=== PATIENT | male | born 1970 | race Caucasian/White ===

== ENCOUNTER 2016-12-31 14:57 | Inpatient (IN) | payer OTHER ==
[2016-12-31 18:25] VITALS: BMI 22.1
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
[2016-12-31] MEDS ORDERED: P-EPHED 60MG/TRIPROLIDI 2.5MG TABLET PO PRN (20:34)
[2016-12-31] MEDS ORDERED: guaiFENesin/D-METHORPHAN HB 10 ML UNIT-DOSE CUPS PO PRN (20:34)
[2016-12-31] MEDS ORDERED: LOPERAMIDE HCL 2 MG CAPSULE PO PRN (20:34)
[2016-12-31] MEDS ORDERED: MAGNESIUM HYDROX 2400MG/30ML ORAL SUSPENSION 30 ML CUP PO PRN (20:34)
[2016-12-31] MEDS ORDERED: MAG HYDROX/AL HYDROX/SIMETH 30 ML UNIT-DOSE CUP PO PRN (20:34)
[2016-12-31] MEDS ORDERED: ACETAMINOPHEN 325 MG TABLET (FP) PO PRN (20:34)
[2016-12-31] MEDS ORDERED: chlordiazePOXIDE HCL 25 MG CAPSULE PO PRN (20:34)
[2016-12-31] MEDS ORDERED: diphenhydrAMINE HCL 50 MG CAPSULE PO PRN (20:34)
[2016-12-31] MEDS ORDERED: IBUPROFEN 400 MG TABLET (FP) PO PRN (20:34)
[2016-12-31] MEDS ORDERED: hydrOXYzine PAMOATE 50 MG CAPSULE (FP) PO PRN (20:34)
[2016-12-31] MEDS ORDERED: chlordiazePOXIDE HCL 25 MG CAPSULE PO ONE (20:34)
[2016-12-31] MEDS ORDERED: MENTHOL/PHENOL 1 EACH UD MM PRN (20:34)
[2016-12-31] MEDS ORDERED: MAGNESIUM CITRATE 300 ML BOTTLE PO PRN (20:34)
[2016-12-31] MEDS ORDERED: ALBUTEROL SO4 6.7 GM HFA INHALER IH PRN (20:37)
[2016-12-31] MEDS: THIAMINE HCL 100 MG TABLET (FP) PO SCH (21:35)
[2016-12-31] MEDS: NICOTINE POLACRILEX 2 MG GUM BC PRN (22:06)
[2016-12-31] MEDS: chlordiazePOXIDE HCL 25 MG CAPSULE PO SCH (22:06)
[2016-12-31 23:34] LABS: URINE APPEARANCE CLEAR; URINE BILIRUBIN NEGATIVE (NEGATIVE); URINE BLOOD NEGATIVE (NEGATIVE); URINE COLOR LT. YELLOW; URINE GLUCOSE (UA) NEGATIVE (NEGATIVE); URINE KETONE NEGATIVE (NEGATIVE); URINE LEUK ESTERASE NEGATIVE (NEGATIVE); URINE NITRITE NEGATIVE (NEGATIVE); URINE PROTEIN NEGATIVE (NEGATIVE); URINE UROBILINOGEN 0.2 mg/dL (0.2-1.0)
[2017-01-01] MEDS: NICOTINE POLACRILEX 2 MG GUM BC PRN ×4 (05:55→20:57)
[2017-01-01] MEDS: chlordiazePOXIDE HCL 25 MG CAPSULE PO SCH ×4 (05:55→22:01)
[2017-01-01 09:57] LABS: MCH 32.8 pg (25.7-33.7); MCHC 33.5 g/dl (32.0-35.9); MEAN CELL VOLUME 97.8 fl (80-96); MEAN PLT VOLUME 7.6 fl (7.5-11.1); PLATELET COUNT 338 K/MM3 (134-434); RDW 13.4 % (11.9-15.9); WHITE BLOOD COUNT 8.8 K/mm3 (4.0-10.0)
[2017-01-01] MEDS: PRENATAL VITAMINS W/ FOLIC ACID TABLET (FP) PO SCH (10:11)
[2017-01-01] MEDS: DIVALPROEX SODIUM 500 MG TABLET E.C. PO SCH ×2 (10:11→22:01)
[2017-01-01] MEDS: PANTOPRAZOLE 40 MG TABLET (FP) PO SCH (10:11)
--- NOTE | 2017-01-01 10:20 | PN ---
BHS CIWA - CIWA Score Nausea/Vomitin Muscle Tremors: 4-Moderate,w/Arms Extend Anxiety: 4-Mod. Anxious/Guarded Agitation: 4-Moderately Restless Paroxysmal Sweats: 3 Orientation: 0-Oriented Tacttile Disturbances: 1-Very Mild Itch/Numbness Auditory Disturbances: 0-None Visual Disturbances: 0-None Headache: 1-Very Mild CIWA-Ar Total Score: 20 BHS Progress Note (SOAP) Subjective: nausea, sweats, interrupted sleep, anxiety, tremors Objective: 01/01/17 10:19 Vital Signs - 24 hr 12/31/16 12/31/16 01/01/17 18:23 22:18 00:25 Temperature 150 F H 97.7 F Pulse Rate 79 73 Respiratory 18 16 18 Rate Blood Pressure 121/68 114/78 01/01/17 01/01/17 06:38 09:59 Temperature 96.6 F L 96.9 F L Pulse Rate 59 L 67 Respiratory 18 18 Rate Blood Pressure 91/69 98/61 Laboratory Tests 12/31/16 01/01/17 20:56 07:00 WBC 8.8 RBC 3.82 L Hgb 12.5 D Hct 37.4 MCV 97.8 H MCH 32.8 MCHC 33.5 RDW 13.4 Plt Count 338 D MPV 7.6 Urine Color Lt. yellow Urine Appearance Clear Urine pH 5.0 Urine Protein Negative Urine Glucose (UA) Negative Urine Ketones Negative Urine Blood Negative Urine Nitrite Negative Urine Bilirubin Negative Urine Urobilinogen 0.2 Ur Leukocyte Esterase Negative labs still pending Assessment: 01/01/17 10:19 withdrawal sx Plan: cont detox, check labs, fluids, encoruage ambualtion
[2017-01-01 10:40] LABS: ALBUMIN 3.2 g/dl (3.4-5.0); ALK PHOS 95 U/L (45-117); ANION GAP 8 (8-16); BILIRUBIN,TOTAL 0.7 mg/dL (0.2-1.0); CALCIUM 8.5 mg/dL (8.5-10.1); CO2 27 mmol/L (21-32); GLUCOSE,RANDOM 93 mg/dL (74-106); SGOT/AST 18 U/L (15-37); SGPT/ALT 53 U/L (12-78)
[2017-01-01] MEDS: ASPIRIN COATED 81 MG TABLET.EC PO SCH (11:30)
--- NOTE | 2017-01-01 12:23 | CONSULT ---
[facility] Psychiatric Consult - Data Date of interview: 01/01/17 Admission source: [facility] Identifying data: This is 46 years old male with history bof psychiatric hospitalization, PTSD history intoxicated with: Alcohol, Cannabis, Cocaine and Nicotine Substance Abuse History: - Smoking Cessation. Smoking history: Current every day smoker. Have you smoked in the past 12 months: Yes. Aproximately how many cigarettes per day: 20. Hx Chewing Tobacco Use: No. Initiated information on smoking cessation: Yes. 'Breaking Loose' booklet given: 12/31/16. - Substance & Tx. History. Hx Alcohol Use: Yes. Hx Substance Use: Yes. Substance Use Type : Alcohol, Cocaine, Marijuana. Hx Substance Use Treatment: Yes ([facility] 06/04/11 to 06/04/11). - Substances Abused. Alcohol. Route: Oral. Frequency: Daily. Amount used: vodka 1 pint, beer 3 of 6packs. Age of first use: 14. Date of Last Use: 12/31/16. Cocaine. Route: Smoking. Frequency: Daily. Amount used: 7 grams. Age of first use: 14. Date of Last Use: 12/30/16. Marijuana/Hashish. Route: Smoking. Frequency: Daily. Amount used: 3 bags. Age of first use: 15. Date of Last Use: 12/30/16 Medical History: GERD, Weight loss history Psychiatric History: Patient reprots history of PTSD, anxiety and depression, rep[orts taking prior to admission: Depakote 500mg po biod. Patient reports most recent unclear psychiatrioc admsision on [address] [facility]. Patient refusing psychiatric medications during detox protocol Physical/Sexual Abuse/Trauma History: Denies Additional Comment: Depakote 500mg po bid. Patient refusing psychiatric medications during detox protocol Mental Status Exam - Mental Status Exam Alert and Oriented to: Person Cognitive Function: Fair Patient Appearance: Unkempt Mood: Angry Affect: Flat Patient Behavior: Sedated Speech Pattern: Appropriate Voice Loudness: Mildly Soft/Quiet Thought Process: Goal Oriented Thought Disorder: Being Controlled Hallucinations: Denies Suicidal Ideation: Denies Homicidal Ideation: Denies Insight/Judgement: Fair Sleep: Difficulty falling asleep Appetite: Weight loss Muscle strength/Tone: Normal Gait/Station: Normal Additional Comments: Depakote 500mg po bid. Patient refusing psychiatric medications during detox protocol Psychiatric Findings - Problem List ([place] 1, 2,3) (1) Alcohol dependence Current Visit: Yes Status: Acute (2) Alcohol dependence with uncomplicated withdrawal Current Visit: Yes Status: Acute (3) Cannabis dependence Current Visit: Yes Status: Acute (4) Cocaine dependence Current Visit: Yes Status: Acute (5) Nicotine dependence Current Visit: Yes Status: Acute (6) PTSD (post-traumatic stress disorder) Current Visit: Yes Status: Acute (7) Drug-induced mood disorder Current Visit: Yes Status: Acute - Initial Treatment Plan Initial Treatment Plan: Depakote 500mg po bid. Patient refusing psychiatric medications during detox protocol
--- NOTE | 2017-01-01 15:00 | EKG ---
Test Reason : Blood Pressure : / mmHG Vent. Rate : 068 BPM Atrial Rate : 068 BPM P-R Int : 132 ms QRS Dur : 098 ms QT Int : 380 ms P-R-T Axes : 043 025 035 degrees QTc Int : 404 ms NORMAL SINUS RHYTHM NORMAL ECG NO PREVIOUS ECGS AVAILABLE Confirmed by KAITLYN HITCHCOCK MD ([id number]) on 01/01/2017 3:00:03 PM Referred By: Jose A Zamora Confirmed By:KAITLYN HITCHCOCK MD
[2017-01-01] MEDS: THIAMINE HCL 100 MG TABLET (FP) PO SCH (22:01)
[2017-01-02] MEDS: chlordiazePOXIDE HCL 25 MG CAPSULE PO SCH ×2 (06:39→10:06)
[2017-01-02] MEDS: NICOTINE POLACRILEX 2 MG GUM BC PRN ×2 (09:24→12:09)
[2017-01-02] MEDS: DIVALPROEX SODIUM 500 MG TABLET E.C. PO SCH (10:06)
[2017-01-02] MEDS: PRENATAL VITAMINS W/ FOLIC ACID TABLET (FP) PO SCH (10:06)
[2017-01-02] MEDS: PANTOPRAZOLE 40 MG TABLET (FP) PO SCH (10:06)
[2017-01-02] MEDS: ASPIRIN COATED 81 MG TABLET.EC PO SCH (10:06)
--- NOTE | 2017-01-02 10:08 | PN ---
[facility] CIWA - CIWA Score Nausea/Vomitin-No Nausea/No Vomiting Muscle Tremors: 3 Anxiety: 4-Mod. Anxious/Guarded Agitation: 4-Moderately Restless Paroxysmal Sweats: 3 Orientation: 0-Oriented Tacttile Disturbances: 0-None Auditory Disturbances: 0-None Visual Disturbances: 0-None Headache: 0-None Present CIWA-Ar Total Score: 14 BHS Progress Note (SOAP) Subjective: Anxiety,tremors,sweating,interrupted sleep,restless. Objective: 01/02/17 10:05 Vital Signs - 8 hr 01/02/17 01/02/17 01/02/17 03:36 06:27 09:25 Temperature 96.2 F L 96.7 F L Pulse Rate 62 75 Respiratory 18 18 18 Rate Blood Pressure 99/64 104/61 01/02/17 09:43 Temperature 96.7 F L Pulse Rate 75 Respiratory 18 Rate Blood Pressure 104/61 Laboratory Last Values WBC 8.8 K/mm3 (4.0-10.0) 01/01/17 07:00 RBC 3.82 M/mm3 (4.00-5.60) L 01/01/17 07:00 Hgb 12.5 GM/dL (11.7-16.9) D 01/01/17 07:00 Hct 37.4 % (35.4-49) 01/01/17 07:00 MCV 97.8 fl (80-96) H 01/01/17 07:00 MCH 32.8 pg (25.7-33.7) 01/01/17 07:00 MCHC 33.5 g/dl (32.0-35.9) 01/01/17 07:00 RDW 13.4 % (11.9-15.9) 01/01/17 07:00 Plt Count 338 K/MM3 (134-434) D 01/01/17 07:00 MPV 7.6 fl (7.5-11.1) 01/01/17 07:00 Sodium 142 mmol/L (136-145) 01/01/17 07:00 Potassium 3.9 mmol/L (3.5-5.1) 01/01/17 07:00 Chloride 107 mmol/L (98-107) 01/01/17 07:00 Carbon Dioxide 27 mmol/L (21-32) 01/01/17 07:00 Anion Gap 8 (8-16) 01/01/17 07:00 BUN 19 mg/dL (7-18) H D 01/01/17 07:00 Creatinine 1.0 mg/dL (0.7-1.3) 01/01/17 07:00 Creat Clearance w eGFR > 60 (>60) 01/01/17 07:00 Random Glucose 93 mg/dL (74-106) 01/01/17 07:00 Calcium 8.5 mg/dL (8.5-10.1) 01/01/17 07:00 Total Bilirubin 0.7 mg/dL (0.2-1.0) D 01/01/17 07:00 AST 18 U/L (15-37) D 01/01/17 07:00 ALT 53 U/L (12-78) D 01/01/17 07:00 Alkaline Phosphatase 95 U/L (45-117) D 01/01/17 07:00 Total Protein 6.0 g/dl (6.4-8.2) L 01/01/17 07:00 Albumin 3.2 g/dl (3.4-5.0) L 01/01/17 07:00 Urine Color Lt. yellow 12/31/16 20:56 Urine Appearance Clear 12/31/16 20:56 Urine pH 5.0 (5.0-8.0) 12/31/16 20:56 Ur Specific [place] 1.025 (1.005-1.025) 12/31/16 20:56 Urine Protein Negative (NEGATIVE) 12/31/16 20:56 Urine Glucose (UA) Negative (NEGATIVE) 12/31/16 20:56 Urine Ketones Negative (NEGATIVE) 12/31/16 20:56 Urine Blood Negative (NEGATIVE) 12/31/16 20:56 Urine Nitrite Negative (NEGATIVE) 12/31/16 20:56 Urine Bilirubin Negative (NEGATIVE) 12/31/16 20:56 Urine Urobilinogen 0.2 mg/dL (0.2-1.0) 12/31/16 20:56 Ur Leukocyte Esterase Negative (NEGATIVE) 12/31/16 20:56 RPR Titer Nonreactive (NONREACTIVE) 01/01/17 07:00 labs noted Assessment: 01/02/17 10:08 Withdrawal sx. Plan: Continue detox
[2017-01-02 13:46] VITALS: BP 103/65; PULSE 71; TEMP 97
[2017-01-02] MEDS ORDERED: chlordiazePOXIDE 5 MG CAPSULE PO SCH (23:00)
[2017-01-03] MEDS ORDERED: chlordiazePOXIDE HCL 10 MG CAPSULE PO SCH (23:00)
== END 2017-01-02 13:15 | disposition left against medical advice (07) | DRG 894 ==
LOC: YASAS 14:57 → Y3N 20:32
PROVIDERS: ADMIT Internal Medicine; ATTEND Internal Medicine
PROC: HZ2ZZZZ Detoxification Services for Substance Abuse Treatment (ICD-10-PCS; principal; 2016-12-31)
DX: F10.230 Alcohol dependence with withdrawal, uncomplicated (principal); F14.20 Cocaine dependence, uncomplicated; F12.20 Cannabis dependence, uncomplicated; F17.210 Nicotine dependence, cigarettes, uncomplicated; F19.24 Other psychoactive substance dependence with psychoactive substance-induced mood disorder; F43.10 Post-traumatic stress disorder, unspecified; J45.909 Unspecified asthma, uncomplicated; K21.9 Gastro-esophageal reflux disease without esophagitis; G47.00 Insomnia, unspecified; Z87.898 Personal history of other specified conditions; Z91.013 Allergy to seafood; Z88.8 Allergy status to other drugs, medicaments and biological substances; Z86.69 Personal history of other diseases of the nervous system and sense organs; Z91.5 Personal history of self-harm
CPT/HCPCS: 36415; 80053; 80164; 81003; 85027; 86593; 93005; 93010

== ENCOUNTER 2017-05-04 15:12 | Inpatient (IN) | payer OTHER ==
[2017-05-04 15:24] VITALS: BMI 22.1
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
[2017-05-04] MEDS ORDERED: MAGNESIUM CITRATE 300 ML BOTTLE PO PRN (17:32)
[2017-05-04] MEDS ORDERED: MAG HYDROX/AL HYDROX/SIMETH 30 ML UNIT-DOSE CUP PO PRN (17:32)
[2017-05-04] MEDS ORDERED: MENTHOL/PHENOL 1 EACH UD MM PRN (17:32)
[2017-05-04] MEDS ORDERED: LOPERAMIDE HCL 2 MG CAPSULE PO PRN (17:32)
[2017-05-04] MEDS ORDERED: P-EPHED 60MG/TRIPROLIDI 2.5MG TABLET PO PRN (17:32)
[2017-05-04] MEDS ORDERED: guaiFENesin/D-METHORPHAN HB 10 ML UNIT-DOSE CUPS PO PRN (17:32)
[2017-05-04] MEDS ORDERED: MAGNESIUM HYDROX 2400MG/30ML ORAL SUSPENSION 30 ML CUP PO PRN (17:32)
[2017-05-04] MEDS ORDERED: NICOTINE 14 MG/24 HOURS TOPICAL PATCH TD PRN (17:34)
[2017-05-04] MEDS ORDERED: ALBUTEROL SO4 18 GM HFA INHALER IH PRN (17:34)
[2017-05-04] MEDS: chlordiazePOXIDE HCL 25 MG CAPSULE PO PRN (19:05)
[2017-05-04] MEDS: NICOTINE POLACRILEX 2 MG GUM BC PRN (19:23)
[2017-05-04] MEDS: ACETAMINOPHEN 325 MG TABLET (FP) PO PRN (22:10)
[2017-05-04] MEDS: chlordiazePOXIDE HCL 25 MG CAPSULE PO SCH (22:10)
[2017-05-04] MEDS: THIAMINE HCL 100 MG TABLET (FP) PO SCH (22:11)
[2017-05-04] MEDS: RANITIDINE HCL 150 MG TABLET (FP) PO SCH (22:11)
[2017-05-04 23:24] LABS: URINE APPEARANCE CLEAR; URINE BILIRUBIN NEGATIVE (NEGATIVE); URINE BLOOD NEGATIVE (NEGATIVE); URINE COLOR YELLOW; URINE GLUCOSE (UA) NEGATIVE (NEGATIVE); URINE KETONE NEGATIVE (NEGATIVE); URINE LEUK ESTERASE NEGATIVE (NEGATIVE); URINE NITRITE NEGATIVE (NEGATIVE); URINE PROTEIN NEGATIVE (NEGATIVE); URINE UROBILINOGEN NEGATIVE mg/dL (0.2-1.0)
[2017-05-05] MEDS: chlordiazePOXIDE HCL 25 MG CAPSULE PO SCH ×4 (05:18→22:07)
[2017-05-05] MEDS: NICOTINE POLACRILEX 2 MG GUM BC PRN ×3 (05:19→22:25)
[2017-05-05 10:03] LABS: MCH 32.2 pg (25.7-33.7); MCHC 32.4 g/dl (32.0-35.9); MEAN CELL VOLUME 99.4 fl (80-96); MEAN PLT VOLUME 7.6 fl (7.5-11.1); PLATELET COUNT 270 K/MM3 (134-434); RDW 13.1 % (11.9-15.9)
[2017-05-05 10:13] LABS: SGOT/AST 26 U/L (15-37); SGPT/ALT 31 U/L (12-78)
[2017-05-05] MEDS: RANITIDINE HCL 150 MG TABLET (FP) PO SCH ×2 (10:19→22:07)
[2017-05-05] MEDS: PRENATAL VITAMINS W/ FOLIC ACID TABLET (FP) PO SCH (10:19)
[2017-05-05 10:22] LABS: URINE LEUK ESTERASE Negative (NEGATIVE)
[2017-05-05 10:26] LABS: ALBUMIN 3.3 g/dl (3.4-5.0); ALK PHOS 96 U/L (45-117); ANION GAP 6 (8-16); BILIRUBIN,TOTAL 0.2 mg/dL (0.2-1.0); CALCIUM 8.3 mg/dL (8.5-10.1); CO2 27 mmol/L (21-32); CREATININE 0.9 mg/dL (0.7-1.3); GLUCOSE,RANDOM 94 mg/dL (74-106); TOT PROT 5.8 g/dl (6.4-8.2)
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
[2017-05-05] MEDS ORDERED: IBUPROFEN 400 MG TABLET (FP) PO PRN (11:56)
--- NOTE | 2017-05-05 12:04 | PN ---
[facility] CIWA - CIWA Score Nausea/Vomitin-No Nausea/No Vomiting Muscle Tremors: 3 Anxiety: 4-Mod. Anxious/Guarded Agitation: 3 Paroxysmal Sweats: 2 Orientation: 0-Oriented Tacttile Disturbances: 2-Mild Itch/Numbness/Burn Auditory Disturbances: 0-None Visual Disturbances: 3-Moderate Sensitivity Headache: 0-None Present CIWA-Ar Total Score: 17 S Progress Note (SOAP) Subjective: Body Aches, Fatigue, Anxious. Objective: PT. A & O X 3, OBSERVED AMBULATING ON UNIT. NO ACUTE DISTRESS. 05/05/17 12:02 Vital Signs Temperature 96.1 F L 05/05/17 09:07 Pulse Rate 57 L 05/05/17 09:07 Respiratory Rate 18 05/05/17 09:07 Blood Pressure 106/65 05/05/17 09:07 O2 Sat by Pulse Oximetry (%) Laboratory Tests 05/04/17 05/05/17 05/05/17 23:10 07:00 07:00 WBC 7.0 RBC 3.97 L Hgb 12.8 Hct 39.4 MCV 99.4 H MCH 32.2 MCHC 32.4 RDW 13.1 Plt Count 270 D MPV 7.6 Sodium 142 Potassium 4.4 Chloride 109 H Carbon Dioxide 27 Anion Gap 6 L BUN 20 H Creatinine 0.9 Creat Clearance w eGFR > 60 Random Glucose 94 Calcium 8.3 L Total Bilirubin 0.2 D AST 26 D ALT 31 D Alkaline Phosphatase 96 Total Protein 5.8 L Albumin 3.3 L Urine Color Yellow Urine Appearance Clear Urine pH 5.0 Ur Specific [place] 1.024 Urine Protein Negative Urine Glucose (UA) Negative Urine Ketones Negative Urine Blood Negative Urine Nitrite Negative Urine Bilirubin Negative Urine Urobilinogen Negative Ur Leukocyte Esterase Negative Valproic Acid 05/05/17 07:00 WBC RBC Hgb Hct MCV MCH MCHC RDW Plt Count MPV Sodium Potassium Chloride Carbon Dioxide Anion Gap BUN Creatinine Creat Clearance w eGFR Random Glucose Calcium Total Bilirubin AST ALT Alkaline Phosphatase Total Protein Albumin Urine Color Urine Appearance Urine pH Ur Specific [place] Urine Protein Urine Glucose (UA) Urine Ketones Urine Blood Urine Nitrite Urine Bilirubin Urine Urobilinogen Ur Leukocyte Esterase Valproic Acid < 3.000 L LABS NOTED. RPR, HIV AB RESULTS PENDING. 05/05/17 12:03 Assessment: 05/05/17 12:02 WITHDRAWAL SYMPTOMS. Plan: CONTINUE DETOX. INCREASE DAILY PO FLUID INTAKE.
[2017-05-05 13:19] LABS: HIV 1 & 2 AB NEGATIVE; HIV 1 AGp24 NEGATIVE
[2017-05-05] MEDS: THIAMINE HCL 100 MG TABLET (FP) PO SCH (22:07)
[2017-05-06] MEDS: chlordiazePOXIDE HCL 25 MG CAPSULE PO PRN (03:47)
[2017-05-06] MEDS: BACLOFEN 10 MG TABLET (FP) PO PRN (03:50)
[2017-05-06] MEDS: chlordiazePOXIDE HCL 25 MG CAPSULE PO SCH ×3 (05:18→17:14)
[2017-05-06] MEDS: NICOTINE POLACRILEX 2 MG GUM BC PRN ×3 (05:20→17:12)
[2017-05-06] MEDS ORDERED: LIDOCAINE 5% TOPICAL PATCH TP ONE (09:49)
--- NOTE | 2017-05-06 10:09 | EKG ---
Test Reason : Blood Pressure : / mmHG Vent. Rate : 063 BPM Atrial Rate : 063 BPM P-R Int : 132 ms QRS Dur : 098 ms QT Int : 382 ms P-R-T Axes : 056 042 044 degrees QTc Int : 390 ms NORMAL SINUS RHYTHM NORMAL ECG WHEN COMPARED WITH ECG OF 31-DEC-2016 20:25, NO SIGNIFICANT CHANGE WAS FOUND Confirmed by MARSHA PAGE MD ([id number]) on 05/06/2017 10:08:56 AM Referred By: Confirmed By:MARSHA PAGE MD
[2017-05-06] MEDS: PSYLLIUM 5.85 GM PACKET PO SCH ×2 (10:23→22:21)
[2017-05-06] MEDS: PRENATAL VITAMINS W/ FOLIC ACID TABLET (FP) PO SCH (10:23)
[2017-05-06] MEDS: RANITIDINE HCL 150 MG TABLET (FP) PO SCH ×2 (10:23→22:21)
--- NOTE | 2017-05-06 12:28 | PN ---
[facility] CIWA - CIWA Score Nausea/Vomitin-No Nausea/No Vomiting Muscle Tremors: 2 Anxiety: 4-Mod. Anxious/Guarded Agitation: 2 Paroxysmal Sweats: No Perspiration Orientation: 0-Oriented Tacttile Disturbances: 2-Mild Itch/Numbness/Burn Auditory Disturbances: 2-Mild Harshness/Frighten Visual Disturbances: 3-Moderate Sensitivity Headache: 0-None Present CIWA-Ar Total Score: 15 [facility] Progress Note (SOAP) Subjective: Diarrhea, Anxious, Body Aches, Tremors. Objective: PT. A & O X 3, OBSERVED AMBULATING ON UNIT. NO ACUTE DISTRESS. 05/06/17 12:29 Vital Signs Temperature 98.1 F 05/06/17 09:18 Pulse Rate 62 05/06/17 09:18 Respiratory Rate 18 05/06/17 09:18 Blood Pressure 106/62 05/06/17 09:18 O2 Sat by Pulse Oximetry (%) Laboratory Tests 05/04/17 05/04/17 05/05/17 07:00 23:10 07:00 WBC 7.0 RBC 3.97 L Hgb 12.8 Hct 39.4 MCV 99.4 H MCH 32.2 MCHC 32.4 RDW 13.1 Plt Count 270 D MPV 7.6 Sodium Potassium Chloride Carbon Dioxide Anion Gap BUN Creatinine Creat Clearance w eGFR Random Glucose Calcium Total Bilirubin AST ALT Alkaline Phosphatase Total Protein Albumin Urine Color Yellow Urine Appearance Clear Urine pH 5.0 Ur Specific [place] 1.024 Urine Protein Negative Urine Glucose (UA) Negative Urine Ketones Negative Urine Blood Negative Urine Nitrite Negative Urine Bilirubin Negative Urine Urobilinogen Negative Ur Leukocyte Esterase Negative Valproic Acid RPR Titer HIV 1&2 Antibody Screen Negative HIV P24 Antigen Negative 05/05/17 05/05/17 05/05/17 07:00 07:00 07:00 WBC RBC Hgb Hct MCV MCH MCHC RDW Plt Count MPV Sodium 142 Potassium 4.4 Chloride 109 H Carbon Dioxide 27 Anion Gap 6 L BUN 20 H Creatinine 0.9 Creat Clearance w eGFR > 60 Random Glucose 94 Calcium 8.3 L Total Bilirubin 0.2 D AST 26 D ALT 31 D Alkaline Phosphatase 96 Total Protein 5.8 L Albumin 3.3 L Urine Color Urine Appearance Urine pH Ur Specific [place] Urine Protein Urine Glucose (UA) Urine Ketones Urine Blood Urine Nitrite Urine Bilirubin Urine Urobilinogen Ur Leukocyte Esterase Valproic Acid < 3.000 L RPR Titer Nonreactive HIV 1&2 Antibody Screen HIV P24 Antigen LABS NOTED. Assessment: 05/06/17 12:29 WITHDRAWAL SYMPTOMS. DEHYDRATION. 05/06/17 12:30 Plan: CONTINUE DETOX. INCREASE DAILY PO FLUID INTAKE. LIDODERM PATCH FOR UPPER BACK PAIN.
[2017-05-06] MEDS ORDERED: LIDOCAINE PATCH REMOVAL MC SCH (22:00)
[2017-05-06] MEDS: chlordiazePOXIDE 5 MG CAPSULE PO SCH (22:21)
[2017-05-06] MEDS: THIAMINE HCL 100 MG TABLET (FP) PO SCH (22:21)
[2017-05-06] MEDS ORDERED: hydrOXYzine PAMOATE 50 MG CAPSULE (FP) PO PRN (23:35)
[2017-05-06] MEDS ORDERED: diphenhydrAMINE HCL 25 MG CAPSULE (FP) PO ONE (23:37)
[2017-05-07] MEDS: BACLOFEN 10 MG TABLET (FP) PO PRN (00:38)
[2017-05-07] MEDS: chlordiazePOXIDE HCL 25 MG CAPSULE PO PRN (00:38)
[2017-05-07] MEDS: chlordiazePOXIDE 5 MG CAPSULE PO SCH ×2 (05:56→10:42)
[2017-05-07] MEDS ORDERED: LIDOCAINE 5% TOPICAL PATCH TP ONE (10:33)
[2017-05-07] MEDS: PRENATAL VITAMINS W/ FOLIC ACID TABLET (FP) PO SCH (10:41)
[2017-05-07] MEDS: PSYLLIUM 5.85 GM PACKET PO SCH (10:41)
[2017-05-07] MEDS: RANITIDINE HCL 150 MG TABLET (FP) PO SCH (10:41)
[2017-05-07] MEDS: ACETAMINOPHEN 325 MG TABLET (FP) PO PRN (10:44)
[2017-05-07 14:13] VITALS: BP 112/71; PULSE 96; TEMP 97.2
--- NOTE | 2017-05-07 14:55 | PN ---
[facility] Progress Note (SOAP) Subjective: Body Aches, Anxious, Interrupted Sleep. Objective: PT. A & O X 3, OBSERVED AMBULATING ON UNIT. NO ACUTE DISTRESS. 05/07/17 14:54 Vital Signs Temperature 97.2 F L 05/07/17 14:13 Pulse Rate 96 H 05/07/17 14:13 Respiratory Rate 18 05/07/17 14:13 Blood Pressure 112/71 05/07/17 14:13 O2 Sat by Pulse Oximetry (%) Laboratory Tests 05/04/17 05/04/17 05/05/17 07:00 23:10 07:00 WBC 7.0 RBC 3.97 L Hgb 12.8 Hct 39.4 MCV 99.4 H MCH 32.2 MCHC 32.4 RDW 13.1 Plt Count 270 D MPV 7.6 Sodium Potassium Chloride Carbon Dioxide Anion Gap BUN Creatinine Creat Clearance w eGFR Random Glucose Calcium Total Bilirubin AST ALT Alkaline Phosphatase Total Protein Albumin Urine Color Yellow Urine Appearance Clear Urine pH 5.0 Ur Specific [place] 1.024 Urine Protein Negative Urine Glucose (UA) Negative Urine Ketones Negative Urine Blood Negative Urine Nitrite Negative Urine Bilirubin Negative Urine Urobilinogen Negative Ur Leukocyte Esterase Negative Valproic Acid RPR Titer HIV 1&2 Antibody Screen Negative HIV P24 Antigen Negative 05/05/17 05/05/17 05/05/17 07:00 07:00 07:00 WBC RBC Hgb Hct MCV MCH MCHC RDW Plt Count MPV Sodium 142 Potassium 4.4 Chloride 109 H Carbon Dioxide 27 Anion Gap 6 L BUN 20 H Creatinine 0.9 Creat Clearance w eGFR > 60 Random Glucose 94 Calcium 8.3 L Total Bilirubin 0.2 D AST 26 D ALT 31 D Alkaline Phosphatase 96 Total Protein 5.8 L Albumin 3.3 L Urine Color Urine Appearance Urine pH Ur Specific [place] Urine Protein Urine Glucose (UA) Urine Ketones Urine Blood Urine Nitrite Urine Bilirubin Urine Urobilinogen Ur Leukocyte Esterase Valproic Acid < 3.000 L RPR Titer Nonreactive HIV 1&2 Antibody Screen HIV P24 Antigen LABS NOTED. Assessment: 05/07/17 14:54 WITHDRAWAL SYMPTOMS. Plan: CONTINUE DETOX. INCREASE DAILY PO FLUID INTAKE. LIDODERM PATCH FOR BACK PAIN.
--- NOTE | 2017-05-07 16:54 | DS ---
[facility] Detox Discharge Summary Admission Date: 05/04/17 Discharge Date: 05/07/17 - History Present History: Alcohol Dependence, Cannabis Dependence, Cocaine Dependence Additional Comments: PATIENT DOES NOT WISH TO STAY TO COMPLETE DETOX REGIMEN. RISKS OF LEAVING DETOX UNIT PRIOR TO COMPLETION OF DETOX REGIMEN EXPLAINED TO PATIENT. PATIENT ADVISED TO GO IMMEDIATELY TO NEAREST ER SHOULD ANY INTOLERABLE DETOX SYMPTOMS DEVELOP AT ANY TIME. PATIENT LEFT DETOX UNIT IN STABLE MEDICAL CONDITION. Pertinent Past History: Asthma, History of ETOH-Related Seizure, GERD, Weight Loss, Bipolar Disorder, PTSD, Nicotine Dependence. - Physical Exam Results Vital Signs: Vital Signs Temperature 97.2 F L 05/07/17 14:13 Pulse Rate 96 H 05/07/17 14:13 Respiratory Rate 18 05/07/17 14:13 Blood Pressure 112/71 05/07/17 14:13 O2 Sat by Pulse Oximetry (%) Pertinent Admission Physical Exam Findings: WITHDRAWAL SYMPTOMS. Laboratory Tests 05/04/17 05/04/17 05/05/17 07:00 23:10 07:00 WBC 7.0 RBC 3.97 L Hgb 12.8 Hct 39.4 MCV 99.4 H MCH 32.2 MCHC 32.4 RDW 13.1 Plt Count 270 D MPV 7.6 Sodium Potassium Chloride Carbon Dioxide Anion Gap BUN Creatinine Creat Clearance w eGFR Random Glucose Calcium Total Bilirubin AST ALT Alkaline Phosphatase Total Protein Albumin Urine Color Yellow Urine Appearance Clear Urine pH 5.0 Ur Specific [place] 1.024 Urine Protein Negative Urine Glucose (UA) Negative Urine Ketones Negative Urine Blood Negative Urine Nitrite Negative Urine Bilirubin Negative Urine Urobilinogen Negative Ur Leukocyte Esterase Negative Valproic Acid RPR Titer HIV 1&2 Antibody Screen Negative HIV P24 Antigen Negative 05/05/17 05/05/17 05/05/17 07:00 07:00 07:00 WBC RBC Hgb Hct MCV MCH MCHC RDW Plt Count MPV Sodium 142 Potassium 4.4 Chloride 109 H Carbon Dioxide 27 Anion Gap 6 L BUN 20 H Creatinine 0.9 Creat Clearance w eGFR > 60 Random Glucose 94 Calcium 8.3 L Total Bilirubin 0.2 D AST 26 D ALT 31 D Alkaline Phosphatase 96 Total Protein 5.8 L Albumin 3.3 L Urine Color Urine Appearance Urine pH Ur Specific [place] Urine Protein Urine Glucose (UA) Urine Ketones Urine Blood Urine Nitrite Urine Bilirubin Urine Urobilinogen Ur Leukocyte Esterase Valproic Acid < 3.000 L RPR Titer Nonreactive HIV 1&2 Antibody Screen HIV P24 Antigen LABS NOTED. - Treatment Hospital Course: Detoxed Safely - Medication Discharge Medications: Ambulatory Orders Lansoprazole [Prevacid -] 30 mg PO DAILY 05/04/17 Albuterol Sulfate Inhaler - [Ventolin Hfa Inhaler -] 2 inh PO Q4H #1 inhaler - Diagnosis (1) Alcohol dependence with uncomplicated withdrawal Status: Acute (2) Cannabis dependence, uncomplicated Status: Acute (3) Cocaine dependence, uncomplicated Status: Chronic (4) Weight loss Status: Acute (5) Asthma Status: Chronic Qualifiers: Asthma severity: mild Asthma persistence: intermittent Asthma complication type: with status asthmaticus Qualified Code(s): J45.22 - Mild intermittent asthma with status asthmaticus (6) GERD (gastroesophageal reflux disease) Status: Chronic Qualifiers: Esophagitis presence: without esophagitis Qualified Code(s): K21.9 - Gastro -esophageal reflux disease without esophagitis (7) Nicotine dependence Status: Acute Qualifiers: Nicotine product type: cigarettes Substance use status: in withdrawal Qualified Code(s): F17.213 - Nicotine dependence, cigarettes, with withdrawal (8) Drug-induced mood disorder Status: Acute (9) Bipolar disorder Status: Chronic Qualifiers: Active/Remission status: remission status unspecified Qualified Code(s): F31.9 - Bipolar disorder, unspecified - AMA Did Patient Leave Against Medical Advice: Yes (PATIENT DID NOT WISH TO STAY TO COMPLETE DETOX REGIMEN.)
[2017-05-07] MEDS ORDERED: LIDOCAINE PATCH REMOVAL MC SCH (22:00)
[2017-05-07] MEDS ORDERED: chlordiazePOXIDE HCL 10 MG CAPSULE PO SCH (23:00)
== END 2017-05-07 04:28 | disposition left against medical advice (07) | DRG 894 ==
LOC: YASAS 15:12 → Y3N 18:00
PROVIDERS: ADMIT Internal Medicine; ATTEND Internal Medicine
PROC: HZ2ZZZZ Detoxification Services for Substance Abuse Treatment (ICD-10-PCS; principal; 2017-05-04)
DX: F10.230 Alcohol dependence with withdrawal, uncomplicated (principal); F14.20 Cocaine dependence, uncomplicated; F31.81 Bipolar II disorder; J45.22 Mild intermittent asthma with status asthmaticus; F12.20 Cannabis dependence, uncomplicated; F17.213 Nicotine dependence, cigarettes, with withdrawal; F19.24 Other psychoactive substance dependence with psychoactive substance-induced mood disorder; K21.9 Gastro-esophageal reflux disease without esophagitis; E86.0 Dehydration; Z88.8 Allergy status to other drugs, medicaments and biological substances; Z86.69 Personal history of other diseases of the nervous system and sense organs; Z87.898 Personal history of other specified conditions; Z91.5 Personal history of self-harm
CPT/HCPCS: 36415; 80053; 80164; 81003; 85027; 86593; 87389; 93005; 93010; J0475

== ENCOUNTER 2018-03-22 12:44 | Inpatient (IN) | payer OTHER ==
[2018-03-22 15:13] VITALS: BMI 23.6
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
[2018-03-22] MEDS ORDERED: ALBUTEROL SO4 8 GM HFA INHALER IH PRN (17:44)
[2018-03-22] MEDS ORDERED: P-EPHED 60MG/TRIPROLIDI 2.5MG TABLET PO PRN (17:45)
[2018-03-22] MEDS ORDERED: MAG HYDROX/AL HYDROX/SIMETH 30 ML UNIT-DOSE CUP PO PRN (17:45)
[2018-03-22] MEDS ORDERED: MAGNESIUM CITRATE 300 ML BOTTLE PO PRN (17:45)
[2018-03-22] MEDS ORDERED: IBUPROFEN 400 MG TABLET (FP) PO PRN (17:45)
[2018-03-22] MEDS ORDERED: MAGNESIUM HYDROX 2400MG/30ML ORAL SUSPENSION 30 ML CUP PO PRN (17:45)
[2018-03-22] MEDS ORDERED: hydrOXYzine PAMOATE 50 MG CAPSULE (FP) PO PRN (17:45)
[2018-03-22] MEDS ORDERED: chlordiazePOXIDE HCL 25 MG CAPSULE PO PRN (17:45)
[2018-03-22] MEDS ORDERED: MENTHOL/PHENOL 1 EACH UD MM PRN (17:45)
[2018-03-22] MEDS ORDERED: ACETAMINOPHEN 325 MG TABLET (FP) PO PRN (17:45)
[2018-03-22] MEDS ORDERED: LOPERAMIDE HCL 2 MG CAPSULE PO PRN (17:45)
[2018-03-22] MEDS ORDERED: guaiFENesin/D-METHORPHAN HB 10 ML UNIT-DOSE CUPS PO PRN (17:45)
[2018-03-22] MEDS ORDERED: ALBUTEROL SO4 0.083% IH SOL 2.5 MG/3 ML VIAL.NEB. NEB PRN (17:53)
[2018-03-22] MEDS: NICOTINE POLACRILEX 2 MG GUM BC PRN ×2 (18:29→22:27)
[2018-03-22] MEDS ORDERED: MELATONIN 5 MG TABLETS PO PRN (22:00)
[2018-03-22] MEDS: THIAMINE HCL 100 MG TABLET (FP) PO SCH (22:25)
[2018-03-22] MEDS: chlordiazePOXIDE HCL 25 MG CAPSULE PO SCH (22:26)
[2018-03-23 01:17] LABS: URINE APPEARANCE CLEAR; URINE BILIRUBIN NEGATIVE (<2.0 mg/dL); URINE COLOR YELLOW; URINE GLUCOSE (UA) NEGATIVE (NEGATIVE); URINE KETONE NEGATIVE (NEGATIVE); URINE LEUK ESTERASE NEGATIVE (NEGATIVE); URINE NITRITE NEGATIVE (NEGATIVE); URINE PROTEIN NEGATIVE (NEGATIVE); URINE UROBILINOGEN NEGATIVE mg/dL (0.2-1.0)
[2018-03-23] MEDS: chlordiazePOXIDE HCL 25 MG CAPSULE PO SCH ×4 (06:24→23:17)
[2018-03-23] MEDS: NICOTINE POLACRILEX 2 MG GUM BC PRN ×2 (06:26→16:57)
[2018-03-23] MEDS: NICOTINE 14 MG/24 HOURS TOPICAL PATCH TD SCH (10:55)
[2018-03-23] MEDS: PRENATAL VITAMINS W/ FOLIC ACID TABLET (FP) PO SCH (10:57)
[2018-03-23 11:29] LABS: HEMATOCRIT 40.2 % (35.4-49); HEMOGLOBIN 12.9 GM/dL (11.7-16.9); MCH 32.3 pg (25.7-33.7); MCHC 32.1 g/dl (32.0-35.9); MEAN CELL VOLUME 100.8 fl (80-96); MEAN PLT VOLUME 7.7 fl (7.5-11.1); PLATELET COUNT 257 K/MM3 (134-434); RBC 3.99 M/mm3 (4.00-5.60); RDW 13.4 % (11.9-15.9); WHITE BLOOD COUNT 6.3 K/mm3 (4.0-10.0)
[2018-03-23 11:56] LABS: ALBUMIN 3.7 g/dl (3.4-5.0); ALK PHOS 84 U/L (45-117); ANION GAP 10 MMOL/L (8-16); BILIRUBIN,TOTAL 0.3 mg/dL (0.2-1); BLOOD UREA NITROGEN 15 mg/dL (7-18); CALCIUM 8.3 mg/dL (8.5-10.1); CHLORIDE 107 mmol/L (98-107); CO2 26 mmol/L (21-32); GLUCOSE,RANDOM 91 mg/dL (74-106); POTASSIUM 4.1 mmol/L (3.5-5.1); SGOT/AST 8 U/L (15-37); SGPT/ALT 16 U/L (13-61); SODIUM 143 mmol/L (136-145); TOT PROT 6.5 g/dl (6.4-8.2)
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
--- NOTE | 2018-03-23 14:57 | PN ---
S CIWA - CIWA Score Nausea/Vomitin Muscle Tremors: 4-Moderate,w/Arms Extend Anxiety: 4-Mod. Anxious/Guarded Agitation: 3 Paroxysmal Sweats: 3 Orientation: 0-Oriented Tacttile Disturbances: 1-Very Mild Itch/Numbness Auditory Disturbances: 0-None Visual Disturbances: 0-None Headache: 1-Very Mild CIWA-Ar Total Score: 18 BHS Progress Note (SOAP) Subjective: Sweating, chills, headache, diarrhea. Patient stated he has 6 roland to right side of head placed at [facility] on 03/13/18 due to laceration. Objective: 03/23/18 14:57 Last Vital Signs Temp Pulse Resp BP Pulse Ox 97.3 F L 67 18 100/58 L 03/23/18 13:55 03/23/18 13:55 03/23/18 13:55 03/23/18 13:55 Laboratory Tests 03/23/18 03/23/18 03/23/18 00:00 07:00 07:00 WBC RBC Hgb Hct MCV MCH MCHC RDW Plt Count MPV Sodium Potassium Chloride Carbon Dioxide Anion Gap BUN Creatinine Creat Clearance w eGFR Random Glucose Calcium Total Bilirubin AST ALT Alkaline Phosphatase Total Protein Albumin Urine Color Yellow Urine Appearance Clear Urine pH 6.0 Ur Specific [place] 1.014 Urine Protein Negative Urine Glucose (UA) Negative Urine Ketones Negative Urine Blood Negative Urine Nitrite Negative Urine Bilirubin Negative Urine Urobilinogen Negative Ur Leukocyte Esterase Negative Valproic Acid 10.9 L RPR Titer HIV 1&2 Antibody Screen Negative HIV P24 Antigen Negative 03/23/18 03/23/18 03/23/18 07:00 07:00 07:00 WBC 6.3 RBC 3.99 L Hgb 12.9 Hct 40.2 MCV 100.8 H MCH 32.3 MCHC 32.1 RDW 13.4 Plt Count 257 MPV 7.7 Sodium 143 Potassium 4.1 Chloride 107 Carbon Dioxide 26 Anion Gap 10 BUN 15 Creatinine 1.0 Creat Clearance w eGFR > 60 Random Glucose 91 Calcium 8.3 L Total Bilirubin 0.3 AST 8 L ALT 16 Alkaline Phosphatase 84 Total Protein 6.5 Albumin 3.7 Urine Color Urine Appearance Urine pH Ur Specific [place] Urine Protein Urine Glucose (UA) Urine Ketones Urine Blood Urine Nitrite Urine Bilirubin Urine Urobilinogen Ur Leukocyte Esterase Valproic Acid RPR Titer Nonreactive HIV 1&2 Antibody Screen HIV P24 Antigen Labs reviewed Assessment: 03/23/18 15:00 Withdrawal symptoms Plan: Continue detox Encouraged PO water intake
[2018-03-23] MEDS: DIVALPROEX SODIUM 500 MG TABLET E.C. PO SCH (23:17)
[2018-03-23] MEDS: THIAMINE HCL 100 MG TABLET (FP) PO SCH (23:17)
[2018-03-24] MEDS: chlordiazePOXIDE HCL 25 MG CAPSULE PO SCH ×3 (06:40→17:17)
[2018-03-24] MEDS: NICOTINE POLACRILEX 2 MG GUM BC PRN ×4 (07:04→22:31)
--- NOTE | 2018-03-24 09:52 | EKG ---
Test Reason : Blood Pressure : / mmHG Vent. Rate : 061 BPM Atrial Rate : 061 BPM P-R Int : 134 ms QRS Dur : 100 ms QT Int : 380 ms P-R-T Axes : 058 050 048 degrees QTc Int : 382 ms NORMAL SINUS RHYTHM NORMAL ECG WHEN COMPARED WITH ECG OF 04-MAY-2017 20:07, NO SIGNIFICANT CHANGE WAS FOUND Confirmed by MARSHA PAGE MD ([id number]) on 03/24/2018 9:52:33 AM Referred By: Confirmed By:MARSHA PAGE MD
[2018-03-24] MEDS: DIVALPROEX SODIUM 500 MG TABLET E.C. PO SCH ×2 (09:56→22:28)
[2018-03-24] MEDS: NICOTINE 14 MG/24 HOURS TOPICAL PATCH TD SCH (09:56)
[2018-03-24] MEDS: PRENATAL VITAMINS W/ FOLIC ACID TABLET (FP) PO SCH (09:56)
[2018-03-24] MEDS: BACITRACIN 0.9 GM PACKET TP SCH ×2 (11:14→22:28)
--- NOTE | 2018-03-24 15:35 | PN ---
S CIWA - CIWA Score Nausea/Vomitin-Mild Nausea/No Vomiting Muscle Tremors: 3 Anxiety: 3 Agitation: 3 Paroxysmal Sweats: 3 Orientation: 0-Oriented Tacttile Disturbances: 1-Very Mild Itch/Numbness Auditory Disturbances: 0-None Visual Disturbances: 0-None Headache: 1-Very Mild CIWA-Ar Total Score: 15 BHS Progress Note (SOAP) Subjective: Anxious, restless, headache, sweating. Patient with roland to right side of head needs to be removed. Filing Clerk will remove when roland remover kit arrived from [facility] today or tomorrow. Objective: 03/24/18 15:32 Last Vital Signs Temp Pulse Resp BP Pulse Ox 97.4 F L 60 16 96/59 L 03/24/18 13:52 03/24/18 13:52 03/24/18 13:52 03/24/18 13:52 Hypotension noted (96/59) Laboratory Tests 03/23/18 03/23/18 03/23/18 00:00 07:00 07:00 WBC RBC Hgb Hct MCV MCH MCHC RDW Plt Count MPV Sodium Potassium Chloride Carbon Dioxide Anion Gap BUN Creatinine Creat Clearance w eGFR Random Glucose Calcium Total Bilirubin AST ALT Alkaline Phosphatase Total Protein Albumin Urine Color Yellow Urine Appearance Clear Urine pH 6.0 Ur Specific [place] 1.014 Urine Protein Negative Urine Glucose (UA) Negative Urine Ketones Negative Urine Blood Negative Urine Nitrite Negative Urine Bilirubin Negative Urine Urobilinogen Negative Ur Leukocyte Esterase Negative Valproic Acid 10.9 L RPR Titer HIV 1&2 Antibody Screen Negative HIV P24 Antigen Negative 03/23/18 03/23/18 03/23/18 07:00 07:00 07:00 WBC 6.3 RBC 3.99 L Hgb 12.9 Hct 40.2 MCV 100.8 H MCH 32.3 MCHC 32.1 RDW 13.4 Plt Count 257 MPV 7.7 Sodium 143 Potassium 4.1 Chloride 107 Carbon Dioxide 26 Anion Gap 10 BUN 15 Creatinine 1.0 Creat Clearance w eGFR > 60 Random Glucose 91 Calcium 8.3 L Total Bilirubin 0.3 AST 8 L ALT 16 Alkaline Phosphatase 84 Total Protein 6.5 Albumin 3.7 Urine Color Urine Appearance Urine pH Ur Specific [place] Urine Protein Urine Glucose (UA) Urine Ketones Urine Blood Urine Nitrite Urine Bilirubin Urine Urobilinogen Ur Leukocyte Esterase Valproic Acid RPR Titer Nonreactive HIV 1&2 Antibody Screen HIV P24 Antigen Labs reviewed Assessment: 03/24/18 15:32 Withdrawal symptoms Noted with hypotension Plan: Continue detox Hypotension: asymptomatic, encouraged PO water intake Will remove the 6 roland from right lateral side of head when roland removal available from [place]. As per patient, roland were placed at [facility] on 03/13/18 due to laceration. Bacitracin ointment ordered to apply to site bid.
[2018-03-24] MEDS: THIAMINE HCL 100 MG TABLET (FP) PO SCH (22:28)
[2018-03-24] MEDS: chlordiazePOXIDE 5 MG CAPSULE PO SCH (22:28)
[2018-03-25] MEDS: chlordiazePOXIDE 5 MG CAPSULE PO SCH ×3 (06:12→17:40)
[2018-03-25] MEDS: BACITRACIN 0.9 GM PACKET TP SCH ×2 (10:27→22:37)
[2018-03-25] MEDS: PRENATAL VITAMINS W/ FOLIC ACID TABLET (FP) PO SCH (10:27)
[2018-03-25] MEDS: DIVALPROEX SODIUM 500 MG TABLET E.C. PO SCH ×2 (10:27→22:37)
[2018-03-25] MEDS: NICOTINE 14 MG/24 HOURS TOPICAL PATCH TD SCH (10:28)
[2018-03-25] MEDS: NICOTINE POLACRILEX 2 MG GUM BC PRN ×3 (10:28→20:48)
--- NOTE | 2018-03-25 14:27 | PN ---
S Progress Note Note: Psychiatric nurse practitioner note: Technical Communicator able to speak to patient concerning his request for a psychiatric follow up. Patient stated, " no i don't need to speak to you. I was accepted to [facility] rehab."
--- NOTE | 2018-03-25 15:33 | PN ---
BHS Progress Note (SOAP) Subjective: Anxious, interrupted sleep Objective: 03/25/18 15:32 Last Vital Signs Temp Pulse Resp BP Pulse Ox 97.7 F 76 18 105/60 03/25/18 13:48 03/25/18 13:48 03/25/18 13:48 03/25/18 13:48 Laboratory Tests 03/23/18 03/23/18 03/23/18 00:00 07:00 07:00 WBC RBC Hgb Hct MCV MCH MCHC RDW Plt Count MPV Sodium Potassium Chloride Carbon Dioxide Anion Gap BUN Creatinine Creat Clearance w eGFR Random Glucose Calcium Total Bilirubin AST ALT Alkaline Phosphatase Total Protein Albumin Urine Color Yellow Urine Appearance Clear Urine pH 6.0 Ur Specific [place] 1.014 Urine Protein Negative Urine Glucose (UA) Negative Urine Ketones Negative Urine Blood Negative Urine Nitrite Negative Urine Bilirubin Negative Urine Urobilinogen Negative Ur Leukocyte Esterase Negative Valproic Acid 10.9 L RPR Titer HIV 1&2 Antibody Screen Negative HIV P24 Antigen Negative 03/23/18 03/23/18 03/23/18 07:00 07:00 07:00 WBC 6.3 RBC 3.99 L Hgb 12.9 Hct 40.2 MCV 100.8 H MCH 32.3 MCHC 32.1 RDW 13.4 Plt Count 257 MPV 7.7 Sodium 143 Potassium 4.1 Chloride 107 Carbon Dioxide 26 Anion Gap 10 BUN 15 Creatinine 1.0 Creat Clearance w eGFR > 60 Random Glucose 91 Calcium 8.3 L Total Bilirubin 0.3 AST 8 L ALT 16 Alkaline Phosphatase 84 Total Protein 6.5 Albumin 3.7 Urine Color Urine Appearance Urine pH Ur Specific [place] Urine Protein Urine Glucose (UA) Urine Ketones Urine Blood Urine Nitrite Urine Bilirubin Urine Urobilinogen Ur Leukocyte Esterase Valproic Acid RPR Titer Nonreactive HIV 1&2 Antibody Screen HIV P24 Antigen Labs reviewed Assessment: 03/25/18 15:32 Withdrawal sxs Plan: Continue detox Encouraged PO water intake
[2018-03-25] MEDS: THIAMINE HCL 100 MG TABLET (FP) PO SCH (22:37)
[2018-03-25] MEDS: chlordiazePOXIDE HCL 10 MG CAPSULE PO SCH (22:37)
[2018-03-26] MEDS: chlordiazePOXIDE HCL 10 MG CAPSULE PO SCH (05:32)
[2018-03-26] MEDS: NICOTINE POLACRILEX 2 MG GUM BC PRN ×2 (05:35→09:02)
[2018-03-26 06:46] VITALS: BP 94/60; PULSE 56; TEMP 97
[2018-03-26] MEDS: NICOTINE 14 MG/24 HOURS TOPICAL PATCH TD SCH (09:58)
[2018-03-26] MEDS: DIVALPROEX SODIUM 500 MG TABLET E.C. PO SCH (09:58)
[2018-03-26] MEDS: BACITRACIN 0.9 GM PACKET TP SCH (09:58)
[2018-03-26] MEDS: PRENATAL VITAMINS W/ FOLIC ACID TABLET (FP) PO SCH (09:58)
--- NOTE | 2018-03-26 12:34 | DS ---
[facility] Detox Discharge Summary Admission Date: 03/22/18 Discharge Date: 03/26/18 - History Present History: Alcohol Dependence, Cannabis Dependence, Cocaine Dependence Additional Comments: Patient is stable for discharge and denied any complaints. Instructed to follow up with his PCP within 1-2 weeks. Pertinent Past History: Asthma GERD Bipolar disorder - Physical Exam Results Vital Signs: Vital Signs Temperature 97 F L 03/26/18 06:45 Pulse Rate 56 L 03/26/18 06:45 Respiratory Rate 18 03/26/18 06:45 Blood Pressure 94/60 03/26/18 06:45 O2 Sat by Pulse Oximetry (%) Pertinent Admission Physical Exam Findings: Withdrawal sxs Laboratory Tests 03/23/18 03/23/18 03/23/18 00:00 07:00 07:00 WBC RBC Hgb Hct MCV MCH MCHC RDW Plt Count MPV Sodium Potassium Chloride Carbon Dioxide Anion Gap BUN Creatinine Creat Clearance w eGFR Random Glucose Calcium Total Bilirubin AST ALT Alkaline Phosphatase Total Protein Albumin Urine Color Yellow Urine Appearance Clear Urine pH 6.0 Ur Specific [place] 1.014 Urine Protein Negative Urine Glucose (UA) Negative Urine Ketones Negative Urine Blood Negative Urine Nitrite Negative Urine Bilirubin Negative Urine Urobilinogen Negative Ur Leukocyte Esterase Negative Valproic Acid 10.9 L RPR Titer HIV 1&2 Antibody Screen Negative HIV P24 Antigen Negative 03/23/18 03/23/18 03/23/18 07:00 07:00 07:00 WBC 6.3 RBC 3.99 L Hgb 12.9 Hct 40.2 MCV 100.8 H MCH 32.3 MCHC 32.1 RDW 13.4 Plt Count 257 MPV 7.7 Sodium 143 Potassium 4.1 Chloride 107 Carbon Dioxide 26 Anion Gap 10 BUN 15 Creatinine 1.0 Creat Clearance w eGFR > 60 Random Glucose 91 Calcium 8.3 L Total Bilirubin 0.3 AST 8 L ALT 16 Alkaline Phosphatase 84 Total Protein 6.5 Albumin 3.7 Urine Color Urine Appearance Urine pH Ur Specific [place] Urine Protein Urine Glucose (UA) Urine Ketones Urine Blood Urine Nitrite Urine Bilirubin Urine Urobilinogen Ur Leukocyte Esterase Valproic Acid RPR Titer Nonreactive HIV 1&2 Antibody Screen HIV P24 Antigen Labs reviewed - Treatment Hospital Course: Detox Protocol Followed, Detoxed Safely, Responded well, Discharged Condition Good - Medication Discharge Medications: Ambulatory Orders Lansoprazole [Prevacid -] 30 mg PO DAILY 12/18/17 Albuterol Sulfate Inhaler - [Ventolin Hfa Inhaler -] 2 inh PO Q4H #1 inhaler Divalproex [Depakote -] 500 mg PO BID 03/22/18 - Diagnosis (1) Alcohol dependence with uncomplicated withdrawal Status: Acute (2) Cannabis dependence Status: Chronic (3) Cocaine dependence Status: Chronic Qualifiers: Substance use status: uncomplicated Qualified Code(s): F14.20 - Cocaine dependence, uncomplicated (4) Insomnia Status: Chronic (5) Nicotine dependence Status: Chronic Qualifiers: Nicotine product type: cigarettes Substance use status: in withdrawal Qualified Code(s): F17.213 - Nicotine dependence, cigarettes, with withdrawal (6) Asthma Status: Chronic Qualifiers: Asthma severity: mild Asthma persistence: intermittent Asthma complication type: with status asthmaticus Qualified Code(s): J45.22 - Mild intermittent asthma with status asthmaticus (7) Bipolar disorder Status: Chronic Qualifiers: Active/Remission status: remission status unspecified Qualified Code(s): F31.9 - Bipolar disorder, unspecified (8) GERD (gastroesophageal reflux disease) Status: Chronic Qualifiers: Esophagitis presence: without esophagitis Qualified Code(s): K21.9 - Gastro -esophageal reflux disease without esophagitis (9) Laceration of head Status: Acute Qualifiers: Laterality: right - AMA Did Patient Leave Against Medical Advice: No (F/U with your PCP within 1-2 weeks )
== END 2018-03-26 10:56 | disposition home or self-care (01) | DRG 897 ==
LOC: YASAS 12:44 → Y3N 16:51
PROC: HZ2ZZZZ Detoxification Services for Substance Abuse Treatment (ICD-10-PCS; principal; 2018-03-22)
DX: F10.230 Alcohol dependence with withdrawal, uncomplicated (principal); F14.20 Cocaine dependence, uncomplicated; F12.20 Cannabis dependence, uncomplicated; F17.213 Nicotine dependence, cigarettes, with withdrawal; F19.24 Other psychoactive substance dependence with psychoactive substance-induced mood disorder; F31.9 Bipolar disorder, unspecified; G47.00 Insomnia, unspecified; J45.20 Mild intermittent asthma, uncomplicated; K21.9 Gastro-esophageal reflux disease without esophagitis; M54.5 Low back pain; G89.29 Other chronic pain; R63.4 Abnormal weight loss; Z68.23 Body mass index [BMI] 23.0-23.9, adult; S01.01XD Laceration without foreign body of scalp, subsequent encounter; Z86.69 Personal history of other diseases of the nervous system and sense organs; Z91.5 Personal history of self-harm; Z88.8 Allergy status to other drugs, medicaments and biological substances; Z91.013 Allergy to seafood; X58.XXXD Exposure to other specified factors, subsequent encounter
CPT/HCPCS: 36415; 80053; 80164; 81003; 85027; 86593; 87389; 93005; 93010

== ENCOUNTER 2018-06-30 14:26 | Inpatient (IN) | payer OTHER ==
[2018-06-30 15:21] VITALS: BMI 23.9
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
[2018-06-30] MEDS ORDERED: IBUPROFEN 400 MG TABLET (FP) PO PRN (17:40)
[2018-06-30] MEDS ORDERED: MENTHOL/PHENOL 1 EACH UD MM PRN (17:40)
[2018-06-30] MEDS ORDERED: LOPERAMIDE HCL 2 MG CAPSULE PO PRN (17:40)
[2018-06-30] MEDS ORDERED: ACETAMINOPHEN 325 MG TABLET (FP) PO PRN (17:40)
[2018-06-30] MEDS ORDERED: P-EPHED 60MG/TRIPROLIDI 2.5MG TABLET PO PRN (17:40)
[2018-06-30] MEDS ORDERED: MAGNESIUM CITRATE 300 ML BOTTLE PO PRN (17:40)
[2018-06-30] MEDS ORDERED: chlordiazePOXIDE HCL 25 MG CAPSULE PO PRN (17:40)
[2018-06-30] MEDS ORDERED: MAGNESIUM HYDROX 2400MG/30ML ORAL SUSPENSION 30 ML CUP PO PRN (17:40)
[2018-06-30] MEDS ORDERED: guaiFENesin/D-METHORPHAN HB 10 ML UNIT-DOSE CUPS PO PRN (17:40)
[2018-06-30] MEDS ORDERED: MAG HYDROX/AL HYDROX/SIMETH 30 ML UNIT-DOSE CUP PO PRN (17:40)
[2018-06-30] MEDS ORDERED: MELATONIN 5 MG TABLETS PO PRN (22:00)
[2018-06-30] MEDS: THIAMINE HCL 100 MG TABLET (FP) PO SCH (22:16)
[2018-06-30] MEDS: hydrOXYzine PAMOATE 50 MG CAPSULE (FP) PO PRN (22:16)
[2018-06-30] MEDS: chlordiazePOXIDE HCL 25 MG CAPSULE PO SCH (22:17)
[2018-07-01] MEDS: chlordiazePOXIDE HCL 25 MG CAPSULE PO SCH ×4 (05:23→22:18)
[2018-07-01] MEDS: NICOTINE POLACRILEX 2 MG GUM BUC PRN ×3 (05:23→17:21)
--- NOTE | 2018-07-01 09:05 | PN ---
[facility] CIWA - CIWA Score Nausea/Vomitin Muscle Tremors: 2 Anxiety: 2 Agitation: 2 Paroxysmal Sweats: 1-Minimal Palms Moist Orientation: 0-Oriented Tacttile Disturbances: 1-Very Mild Itch/Numbness Auditory Disturbances: 1-Very Mild Visual Disturbances: 0-None Headache: 2-Mild CIWA-Ar Total Score: 13 BHS Progress Note (SOAP) Subjective: alert,irritable,anxious,interrupted sleep,pain in the body,tremor Objective: 07/01/18 09:03 Vital Signs Temperature 97.9 F 07/01/18 08:59 Pulse Rate 72 07/01/18 08:59 Respiratory Rate 18 07/01/18 08:59 Blood Pressure 102/68 07/01/18 08:59 O2 Sat by Pulse Oximetry (%) 07/01/18 09:04 labs pending Assessment: 07/01/18 09:05 withdrawal symptom Plan: continue detox,ensure plus 120 mls po bid
[2018-07-01] MEDS ORDERED: PRENATAL VITAMINS W/ FOLIC ACID TABLET (FP) PO SCH (10:00)
[2018-07-01] MEDS ORDERED: NICOTINE 14 MG/24 HOURS TOPICAL PATCH TD SCH (10:00)
[2018-07-01] MEDS ORDERED: MELATONIN 5 MG TABLETS PO PRN (10:50)
[2018-07-01 10:58] LABS: ALBUMIN 3.3 g/dl (3.4-5.0); ALK PHOS 79 U/L (45-117); ANION GAP 4 MMOL/L (8-16); BILIRUBIN,TOTAL 0.2 mg/dL (0.2-1); BLOOD UREA NITROGEN 16 mg/dL (7-18); CALCIUM 8.2 mg/dL (8.5-10.1); CHLORIDE 110 mmol/L (98-107); CO2 28 mmol/L (21-32); CREATININE 0.9 mg/dL (0.55-1.3); GLUCOSE,RANDOM 94 mg/dL (74-106); POTASSIUM 4.2 mmol/L (3.5-5.1); SGOT/AST 14 U/L (15-37); SGPT/ALT 19 U/L (13-61); SODIUM 142 mmol/L (136-145)
--- NOTE | 2018-07-01 10:58 | CONSULT ---
[facility] Psychiatric Consult - Data Date of interview: 07/06/18 Admission source: [facility] Identifying data: Patient is a 48 year old single male, father of one, , domiciled, and is supported by [facility]. This is one of multiple admissions for patient. Patient admitted to for alcohol, cocaine, and benzodiazepine dependence. Substance Abuse History: Smoking Cessation. Smoking history: Current every day smoker. Have you smoked in the past 12 months: Yes. Aproximately how many cigarettes per day: 20. Cigars Per Day: 0. Hx Chewing Tobacco Use: No. Initiated information on smoking cessation: Yes. 'Breaking Loose' booklet given : 06/30/18. - Substance & Tx. History. Hx Alcohol Use: Yes. Hx Substance Use : Yes. Substance Use Type: Alcohol, Cocaine. Hx Substance Use Treatment: Yes ( ast detox [facility] 03/22/18 -03/26/18 [facility] 03/22/18 -03/26/18). - Substances Abused. Alcohol. Route: Oral. Frequency: Daily. Amount used: 1 pint and 1 case of beer ( 24 beers). Age of first use: 14. Date of Last Use: 06/30/18. Benzodiazepine (Klonopin). Route: Oral. Frequency: 1-3 times last 30 days. Amount used: 1 -2 mg. Age of first use: 48. Date of Last Use: 06/23/18. Cocaine. Route: Inhalation. Amount used: 3.5 gram. Age of first use: 14. Date of Last Use: 06/30/18. Marijuana/Hashish. Route: Smoking. Frequency: 1-2 times per week. Amount used: $10. Age of first use: 14. Date of Last Use : 06/23/18 Medical History: Asthma, R wrist sx in 1998 Psychiatric History: Mr. Serna denies h/o psychiatric hospitalization but as per Dr. aLm entry on 04/02/18 patient reported h/o of multiple psychiartric hospitalizations at [facility], [facility] and [facility] He reports being diagnosed with bipolar disorder at 14 and with PTSD at 16 years of age after witnessing the deaths of several friends. He reports symtoms of flashbacks and nightmares. States he has been prescribed topamax, tegretol, thorazine, and prozac (made him suicidal). Current outpatient psychiatric care is provided at [facility] outpatient clinic. States he is prescribed depakote 500mg BID. He reports one suicide attempt by cutting his left wrist 20 years ago. At present, patients feels sad and is slighlty irritable. Physical/Sexual Abuse/Trauma History: Witness many deaths in his life. Mental Status Exam - Mental Status Exam Alert and Oriented to: Time, Place, Person Cognitive Function: Good Patient Appearance: Well Groomed Mood: Irritable Affect: Mood Congruent Patient Behavior: Cooperative Speech Pattern: Clear Voice Loudness: Normal Thought Process: Intact, Goal Oriented Thought Disorder: Not Present Hallucinations: Denies Suicidal Ideation: Denies Homicidal Ideation: Denies Insight/Judgement: Poor Sleep: Fair Appetite: Fair Muscle strength/Tone: Normal Gait/Station: Normal Psychiatric Findings - Problem List ([place] 1, 2,3) (1) PTSD (post-traumatic stress disorder) Current Visit: No Status: Suspected (2) Alcohol dependence with uncomplicated withdrawal Current Visit: Yes Status: Acute (3) Cannabis dependence, uncomplicated Current Visit: Yes Status: Acute (4) Cocaine dependence Current Visit: Yes Status: Chronic Qualifiers: Substance use status: uncomplicated Qualified Code(s): F14.20 - Cocaine dependence, uncomplicated (5) Mood disorder Current Visit: Yes Status: Chronic - Initial Treatment Plan Initial Treatment Plan: Psychoeducation provided. Detoxification in progress. Will order Depakote 500mg BID. Benefits and side effects discussed. Verbal consent given.
[2018-07-01 11:36] LABS: HEMATOCRIT 39.3 % (35.4-49); MCH 33.2 pg (25.7-33.7); MCHC 33.2 g/dl (32.0-35.9); MEAN CELL VOLUME 99.9 fl (80-96); MEAN PLT VOLUME 7.7 fl (7.5-11.1); PLATELET COUNT 262 K/MM3 (134-434); RBC 3.93 M/mm3 (4.00-5.60); RDW 13.2 % (11.9-15.9); WHITE BLOOD COUNT 6.3 K/mm3 (4.0-10.0)
[2018-07-01] MEDS: DIVALPROEX SODIUM 500 MG TABLET E.C. PO SCH ×2 (11:40→22:19)
[2018-07-01] MEDS ORDERED: traZODone HCL 50 MG TABLET (FP) PO SCH (22:00)
[2018-07-01] MEDS: THIAMINE HCL 100 MG TABLET (FP) PO SCH (22:19)
[2018-07-01] MEDS: hydrOXYzine PAMOATE 50 MG CAPSULE (FP) PO PRN (23:32)
[2018-07-02] MEDS: chlordiazePOXIDE HCL 25 MG CAPSULE PO SCH (06:54)
[2018-07-02 09:13] VITALS: BP 103/56; PULSE 59; TEMP 97.3
--- NOTE | 2018-07-02 09:25 | PN ---
S CIWA - CIWA Score Nausea/Vomitin Muscle Tremors: 2 Anxiety: 2 Agitation: 2 Paroxysmal Sweats: 1-Minimal Palms Moist Orientation: 0-Oriented Tacttile Disturbances: 1-Very Mild Itch/Numbness Auditory Disturbances: 1-Very Mild Visual Disturbances: 0-None Headache: 2-Mild CIWA-Ar Total Score: 13 BHS Progress Note (SOAP) Subjective: alert,irritable,anxious,interrupted sleep,tremor,pain in the body Objective: 07/02/18 09:23 Vital Signs Temperature 97.3 F L 07/02/18 09:12 Pulse Rate 59 L 07/02/18 09:12 Respiratory Rate 18 07/02/18 09:12 Blood Pressure 103/56 L 07/02/18 09:12 O2 Sat by Pulse Oximetry (%) 07/02/18 09:24 Lab Results WBC 6.3 K/mm3 (4.0-10.0) 07/01/18 07:00 RBC 3.93 M/mm3 (4.00-5.60) L 07/01/18 07:00 Hgb 13.0 GM/dL (11.7-16.9) 07/01/18 07:00 Hct 39.3 % (35.4-49) 07/01/18 07:00 MCV 99.9 fl (80-96) H 07/01/18 07:00 MCHC 33.2 g/dl (32.0-35.9) 07/01/18 07:00 RDW 13.2 % (11.9-15.9) 07/01/18 07:00 Plt Count 262 K/MM3 (134-434) 07/01/18 07:00 Sodium 142 mmol/L (136-145) 07/01/18 07:00 Potassium 4.2 mmol/L (3.5-5.1) 07/01/18 07:00 Chloride 110 mmol/L (98-107) H 07/01/18 07:00 Carbon Dioxide 28 mmol/L (21-32) 07/01/18 07:00 Anion Gap 4 MMOL/L (8-16) L 07/01/18 07:00 BUN 16 mg/dL (7-18) 07/01/18 07:00 Creatinine 0.9 mg/dL (0.55-1.3) 07/01/18 07:00 Random Glucose 94 mg/dL (74-106) 07/01/18 07:00 Calcium 8.2 mg/dL (8.5-10.1) L 07/01/18 07:00 Assessment: 07/02/18 09:24 withdrawal symptom Plan: discharge today,follow up with after care program as arrangement
--- NOTE | 2018-07-02 09:46 | PN ---
Hari Progress Note Note: patient did not want to complete treatment,all attempts to convince patient to stay with no avail,risks of relapse explained, signed release ama,advise follow up with after care program as arrangement or to er if emergency problem ,
--- NOTE | 2018-07-02 09:50 | DS ---
[facility] Detox Discharge Summary Admission Date: 06/30/18 Discharge Date: 07/02/18 - History Present History: Alcohol Dependence, Cannabis Dependence, Cocaine Dependence Additional Comments: patient signed release ama Pertinent Past History: asthma weight loss - Physical Exam Results Vital Signs: Vital Signs Temperature 97.3 F L 07/02/18 09:12 Pulse Rate 59 L 07/02/18 09:12 Respiratory Rate 18 07/02/18 09:12 Blood Pressure 103/56 L 07/02/18 09:12 O2 Sat by Pulse Oximetry (%) Pertinent Admission Physical Exam Findings: Vital Signs Temperature 97.3 F L 07/02/18 09:12 Pulse Rate 59 L 07/02/18 09:12 Respiratory Rate 18 07/02/18 09:12 Blood Pressure 103/56 L 07/02/18 09:12 O2 Sat by Pulse Oximetry (%) Laboratory Last Values WBC 6.3 K/mm3 (4.0-10.0) 07/01/18 07:00 RBC 3.93 M/mm3 (4.00-5.60) L 07/01/18 07:00 Hgb 13.0 GM/dL (11.7-16.9) 07/01/18 07:00 Hct 39.3 % (35.4-49) 07/01/18 07:00 MCV 99.9 fl (80-96) H 07/01/18 07:00 MCH 33.2 pg (25.7-33.7) 07/01/18 07:00 MCHC 33.2 g/dl (32.0-35.9) 07/01/18 07:00 RDW 13.2 % (11.9-15.9) 07/01/18 07:00 Plt Count 262 K/MM3 (134-434) 07/01/18 07:00 MPV 7.7 fl (7.5-11.1) 07/01/18 07:00 Sodium 142 mmol/L (136-145) 07/01/18 07:00 Potassium 4.2 mmol/L (3.5-5.1) 07/01/18 07:00 Chloride 110 mmol/L (98-107) H 07/01/18 07:00 Carbon Dioxide 28 mmol/L (21-32) 07/01/18 07:00 Anion Gap 4 MMOL/L (8-16) L 07/01/18 07:00 BUN 16 mg/dL (7-18) 07/01/18 07:00 Creatinine 0.9 mg/dL (0.55-1.3) 07/01/18 07:00 Creat Clearance w eGFR > 60 (>60) 07/01/18 07:00 Random Glucose 94 mg/dL (74-106) 07/01/18 07:00 Calcium 8.2 mg/dL (8.5-10.1) L 07/01/18 07:00 Total Bilirubin 0.2 mg/dL (0.2-1) 07/01/18 07:00 AST 14 U/L (15-37) L 07/01/18 07:00 ALT 19 U/L (13-61) 07/01/18 07:00 Alkaline Phosphatase 79 U/L (45-117) 07/01/18 07:00 Total Protein 6.0 g/dl (6.4-8.2) L 07/01/18 07:00 Albumin 3.3 g/dl (3.4-5.0) L 07/01/18 07:00 Valproic Acid 8.6 ug/ml (50-100) L 07/01/18 07:00 RPR Titer Nonreactive (NONREACTIVE) 07/01/18 07:00 HIV 1&2 Antibody Screen Negative 07/01/18 07:00 HIV P24 Antigen Negative 07/01/18 07:00 - Treatment Patient has Accepted a Rehab Referral to: declined - Medication Discharge Medications: Ambulatory Orders Albuterol Sulfate Inhaler - [Ventolin Hfa Inhaler -] 2 inh PO Q4H #1 inhaler Divalproex [Depakote -] 500 mg PO BID 03/22/18 - Diagnosis (1) Alcohol dependence with uncomplicated withdrawal Current Visit: Yes Status: Acute (2) Cannabis dependence, uncomplicated Current Visit: Yes Status: Acute (3) Cocaine dependence Current Visit: Yes Status: Chronic Qualifiers: Substance use status: uncomplicated Qualified Code(s): F14.20 - Cocaine dependence, uncomplicated (4) Asthma Current Visit: Yes Status: Acute - AMA Did Patient Leave Against Medical Advice: Yes
[2018-07-02] MEDS ORDERED: chlordiazePOXIDE 5 MG CAPSULE PO SCH (23:00)
[2018-07-03] MEDS ORDERED: chlordiazePOXIDE HCL 10 MG CAPSULE PO SCH (23:00)
== END 2018-07-02 10:40 | disposition left against medical advice (07) | DRG 894 ==
LOC: YASAS 14:26 → Y6N 17:48
PROVIDERS: ADMIT Surgery; ATTEND Surgery
PROC: HZ2ZZZZ Detoxification Services for Substance Abuse Treatment (ICD-10-PCS; principal; 2018-06-30)
DX: F10.230 Alcohol dependence with withdrawal, uncomplicated (principal); F14.20 Cocaine dependence, uncomplicated; F12.20 Cannabis dependence, uncomplicated; F17.210 Nicotine dependence, cigarettes, uncomplicated; F43.10 Post-traumatic stress disorder, unspecified; F39 Unspecified mood [affective] disorder; J45.909 Unspecified asthma, uncomplicated
CPT/HCPCS: 36415; 80053; 80164; 85027; 86593; 87389